=== PATIENT | male | born 1945 | race Caucasian/White ===

== ENCOUNTER → 2018-07-21 11:26 | Outpatient (CLI) | payer OTHER, SELFPAY ==
[2018-07-21 13:08] LABS: BUN Creatinine Ratio 17.3 (6-22); Blood Urea Nitrogen 19 mg/dL (9-20); Estimated Glomerular Filt Rate > 60.0 mL/min (>60)
== END ==
PROVIDERS: Visit Provider Internal Medicine Critical Care Medicine
DX: Z01.812 Encounter for preprocedural laboratory examination (principal)
CPT/HCPCS: 36415; 82565; 84520

== ENCOUNTER → 2018-07-22 10:59 | Outpatient (CLI) | payer OTHER, SELFPAY ==
--- NOTE | 2018-07-22 | DI.CT.S_ITS ---
PROCEDURE: CT CHEST W CON INDICATIONS: CHRONIC OBSTRUCTIVE PULMONARY DISEASE TECHNIQUE: After the administration of intravenous contrast, 5 mm thick sections acquired from the pulmonary apices to the posterior costophrenic angles. 7 mm thick coronal and sagittal MIP reformats were acquired. For radiation dose reduction, the following was used: automated exposure control, adjustment of mA and/or kV according to patient size. COMPARISON: None. FINDINGS: Image quality: Excellent. Lungs and pleura: There is severe centrilobular emphysema with an apical predominance. Paraseptal emphysema is also present at the apices. No pulmonary nodules. No acute air space opacities. No pleural effusion or pneumothorax. Mediastinum: Heart size is normal. No pericardial effusion. No mediastinal or hilar adenopathy by size criteria. Thoracic aorta and central pulmonary arteries are normal in size. Scattered atheromatous calcifications are present within the aortic arch. Esophagus is normal in caliber. No hiatal hernia. Bones and chest wall: No suspicious bony lesions. No vertebral body compression fractures. No axillary or supraclavicular adenopathy by size criteria. Thyroid gland is unremarkable. Abdomen: Visualized upper abdominal solid organs appear normal. Upper abdominal bowel loops are normal in caliber. IMPRESSION: 1. Severe emphysematous change. 2. No acute pulmonary findings. Dictated by: Cathy Espinal M.D. on 07/22/2018 at 11:43 Approved by: Cathy Espinal M.D. on 07/22/2018 at 11:49
== END ==
PROVIDERS: Visit Provider Internal Medicine Critical Care Medicine
DX: J43.2 Centrilobular emphysema (principal)
CPT/HCPCS: 71260; Q9967

== ENCOUNTER 2019-12-31 11:30 | Outpatient (RCR) | payer OTHER, SELFPAY ==
[2019-12-16 09:08] VITALS: BP 120/78; BP 126/78; RESP 12; O2SAT 93; BMI 28.5
--- NOTE | 2019-12-16 10:54 | PR.IEVALNOTE ---
Current Diagnoses Chronic obstructive pulmonary disease, unspecified (12/16/19) Visit Care Team Role Provider Type Bandar Pham MD Primary Care Provider Non-Staff Specialty: Medical Address: [address] [place] [address], [place] [id number], [place], [address] Email: Brian Valadez MD Attending Provider Non-Staff Referring Provider Specialty: Internal Medicine Address: [address] [place] [address], [place], [place], [facility] Email: Pulmonary Rehab Initial Evaluation DE Pulmonary Rehab Inital Assessment Start: 12/16/19 09:06 Freq: Status: Active Protocol: Document 12/16/19 09:08 YOBANY (Rec: 12/16/19 09:48 YOBANY [id number]) DE Exercise Assessment Dx: COPD Comment moderate to severe upper lobe emphysema SHAYY-untreated Primary Language [place] Refractory Repairer Required No Hearing Ability Normal Visual Impairment No Limitations Visual Difficutly None Visual Assist Glasses Body Alignment Posture Good Posture,Relaxed Assistive Devices None Comment patient denies any barriers. Pt states he will be able to exercise independently after completing Pulmonary Rehabilitation Comment Pt does not exercise currently and although physically active has never engaged in purposeful exercise DE Vital Signs Pulse Oximetry (91-100 %) 93 Nasal Cannula No Respiratory Rate (12-24 breaths/min) 12 Respiratory Effort Non-Labored Respiratory Depth Normal Assessment distant breath sounds clear to auscultation Right Arm Blood Pressure (90/60-140/90 mmHg) 126/78 Blood Pressure Method Manual Cuff/Auscultation Left Arm Blood Pressure (90/60-140/90 mmHg) 120/78 Blood Pressure Method Manual Cuff/Auscultation DE Six Minute Walk Test Respiratory Rate (breaths/min) 12 Pulse Rate (beats/min) 99 O2 Saturation by Pulse Oximetry (%) 91 Pulse Rate (beats/min) 108 Ambulation Distance (feet) 250 O2 Saturation by Pulse Oximetry (%) 88 Pulse Rate (beats/min) 105 Ambulation Distance (feet) 200 O2 Saturation by Pulse Oximetry (%) 88 Ambulatory Distance (feet) 200 Pulse Rate (beats/min) 110 Ambulation Distance (feet) 250 O2 Saturation by Pulse Oximetry (%) 89 Pulse Rate (beats/min) 104 Ambulation Distance (feet) 250 O2 Saturation by Pulse Oximetry (%) 88 PUlse Rate (beats/min) 111 Ambulation Distance (feet) 170 O2 Saturation by Pulse Oximetry (%) 88 Respiratory Rate (breaths/min) 18 Pulse Rate (beats/min) 11 O2 Saturation by Pulse Oximetry (%) 88 Activity Tolerance Fair Adverse Reactions Increased Shortness of Breath, Intolerant Dyspnea Distance 1070 Scarlet RPE Scale 12 Oriented to RPE Scale Yes Dyspnea 3 Oriented to Dyspnea Scale Yes DE Exercise Goals Exercise Goals demonstrate appropriate pursed lip breathing technique DASI Number and Comment 8.55 Short Term learn breathing techniques to prevent desaturation, early onset of dyspnea and fatigue Retirement Improve stamina and endurance DE Pulmonary Rehab Orientation Complete Complete Yes DE Nutrition Assessment Forced Expiratory Volume in 1 sec. 41% History of Diabetes No Admit Height 182.88 cm Admit Weight 95.254 kg Admit Body Mass Index (BMI) 28.5 DE Education Pre-Test Score 45% Tobacco Use Former, Quit >6 Months Tobacco Product Used cigarettes Total Years Used 41 Packs Per Day 1 Environmental/Occupational Exposure chlorine gas Use No Concerns None Education Topics Breathing Retraining Discussed Education Requirements on Yes Intake DE Psychosocial Initial Assess HADS Score 2 HADS Score 0 Marital Status Referral Needed No Physician Comment Ready for Pulmonary Rehabilitation Cooperative
== END 2019-12-31 12:30 ==
LOC: PUL 11:30
PROVIDERS: PCP Family Medicine; Referring Provider Internal Medicine Critical Care Medicine; Visit Provider Internal Medicine Critical Care Medicine
DX: J44.9 Chronic obstructive pulmonary disease, unspecified (principal)
CPT/HCPCS: G0424

== ENCOUNTER → 2021-02-17 17:24 | Outpatient (CLI) | payer OTHER, SELFPAY ==
[2019-12-16 09:08] VITALS: BMI 28.5
--- NOTE | 2021-02-17 17:27 | DI.MRI.S_ITS ---
PROCEDURE: MR CERVICAL SPINE WO CON INDICATIONS: RADICULOPATHY CERVICAL REGION TECHNIQUE: Noncontrast sagittal T1 spin echo and T2 fast spin echo, sagittal STIR, foraminal oblique sagittal T2 fast spin echo, and axial gradient echo or T2 fast spin echo through the cervical spine. COMPARISON: None. FINDINGS: Image quality: Excellent. Alignment and Curvature: There is normal bony alignment. Bone Marrow: Marrow demonstrates normal overall signal. Postoperative changes of ACDF spanning from C6-C7. Disc osteophytes are present at C4-5 and C5-6. Spinal Cord: Visualized spinal cord has normal size and signal. No cerebellar tonsillar herniation. Paraspinous Soft Tissues: No paravertebral masses. Prevertebral soft tissues are normal in thickness. C2-C3: No significant disc bulge. The foramina and central canal are patent. C3-C4: No significant disc bulge. The foramina and central canal are patent. C4-C5: Diffuse disc bulge with no protrusion or extrusion and ligamentum flavum hypertrophy posteriorly cause mild central canal stenosis. Facet arthrosis and disc osteophytes cause moderate foraminal stenosis bilaterally. C5-C6: Diffuse disc bulge with no protrusion or extrusion. And ligamentum flavum hypertrophy posteriorly cause moderate central canal stenosis. Facet arthrosis and disc osteophytes cause moderate to severe foraminal stenosis bilaterally. C6-C7: This level is fused by ACDF. The foramina and central canal are patent. C7-T1: No significant disc bulge. The foramina and central canal are patent. IMPRESSION: 1 Cervical spondylosis at C4-5 and C5-6, most pronounced at C5-6 adjacent to the level of fusion. 2. No abnormal cord signal. 3. Mild central canal stenosis at C4-5 and moderate central canal stenosis at C5-6 Dictated by: Griffin Norman M.D. on 02/20/2021 at 8:28 Approved by: Griffin Norman M.D. on 02/20/2021 at 8:35
== END ==
PROVIDERS: PCP Family Medicine; Referring Provider Family Medicine; Visit Provider Family Medicine
DX: M47.22 Other spondylosis with radiculopathy, cervical region (principal); M48.02 Spinal stenosis, cervical region; M79.602 Pain in left arm; Z98.1 Arthrodesis status
CPT/HCPCS: 72141

== ENCOUNTER 2021-08-24 07:34 | Emergency (ER) | payer OTHER, SELFPAY ==
[2019-12-16 09:08] VITALS: BMI 28.5
[2021-08-24] VITALS (7 sets, daily range): BP systolic 126–149; BP diastolic 64–82; PULSE 94–104; RESP 18–28; TEMP 36.9; O2SAT 94–98; BMI 28.5
--- NOTE | 2021-08-24 08:02 | DI.RAD.S_ITS ---
PROCEDURE: XR CHEST 1V INDICATIONS: Shortness of breath TECHNIQUE: One view of the chest was acquired. COMPARISON: [facility], CT, CT CHEST W CON, 07/22/2018, 11:00. [facility], CR, CHEST 2 VIEW, 10/07/2008, 13:15. FINDINGS: Surgical changes and devices: None. Lungs and pleura: Lungs are mildly hyperexpanded and clear. No pleural effusions or pneumothorax. Mediastinum: Mediastinal contours appear normal. Heart size is normal. Bones and chest wall: No suspicious bony lesions. Overlying soft tissues appear unremarkable. IMPRESSION: No acute cardiopulmonary abnormality. COPD. Dictated by: Doug Garcia M.D. on 08/24/2021 at 8:56 Approved by: Doug Garcia M.D. on 08/24/2021 at 9:01
--- NOTE | 2021-08-24 08:09 | ED_ITS ---
HPI - General Adult General Chief complaint: Shortness of Breath/Dyspnea Stated complaint: SOB Time Seen by Provider: 08/24/21 08:00 Source: patient Mode of arrival: Ambulatory Limitations: no limitations History of Present Illness HPI narrative: Patient is a 75-year-old male. Does have a history of COPD. Is not on home oxygen. Does have home inhalers. Over the past several months he has had episodes where he has problems breathing. Within the past 3 months he was given a course of antibiotics. He states that the mucus production during that time improved but then once the antibiotics were done the symptoms seem to return. Over the past couple days he has had more dyspnea on exertion. Last evening could not lie flat because he was short of breath. This morning he felt somewhat better however just walking around the house he became more short of breath. No chest pain. No abdominal pain. No nausea vomiting. No fevers. He does have lower extremity swelling but this is not necessarily new. He does have a productive cough but has not changed much over the past several weeks. No recent travel. Related Data Home Medications Medication Instructions Recorded Confirmed beclomethasone dipropionate [Qvar] INHALATION 03/19/19 03/19/19 tiotropium bromide [Spiriva INHALATION 03/19/19 03/19/19 Respimat] Previous Rx's Medication Instructions Recorded azithromycin 250 mg tablet See Rx Instructions PO .COMPLEX #6 03/19/19 tab prednisone 20 mg tablet 40 mg PO DAILY 5 Days #10 tab 08/24/21 Allergies Allergy/AdvReac Type Severity Reaction Status Date / Time No Known Drug Allergies Allergy Verified 03/19/19 08:21 Review of Systems Constitutional Constitutional: Reports system reviewed and no additional complaints, except as documented Eyes Eyes: Reports system reviewed and no additional complaints, except as documented ENT Ears, Nose, Mouth, and Throat: Reports system reviewed and no additional complaints, except as documented Cardiovascular Cardiovascular: Reports system reviewed and no additional complaints, except as documented Respiratory Respiratory: Reports as per HPI and Reports system reviewed and no additional complaints, except as documented Gastrointestinal Gastrointestinal: Reports system reviewed and no additional complaints, except as documented Genitourinary Genitourinary: Reports system reviewed and no additional complaints, except as documented Musculoskeletal Musculoskeletal: Reports system reviewed and no additional complaints, except as documented Integumentary/Breasts Skin/Breast: Reports system reviewed and no additional complaints, except as documented Neurologic Neurologic: Reports system reviewed and no additional complaints, except as documented Endocrine Endocrine: Reports system reviewed and no additional complaints, except as documented Hematologic/Lymphatic On Anticoagulants: No Allergic/Immunologic Allergic/Immunologic: Reports system reviewed and no additional complaints, except as documented Patient History Medical History Chronic obstructive pulmonary disease Social History Smoking Status: Former smoker Tobacco: How many years used: 41 Smoking Status: Former smoker (Quit 1999) Exam Initial Vital Signs Initial Vital Signs: Vital Signs Pulse Rate 95 H 08/24/21 08:10 Respiratory Rate 20 08/24/21 08:10 Pulse Oximetry 95 08/24/21 08:10 Const General: cooperative, comfortable, well developed and well groomed Limitations: mental status not altered HENMT Head: normal to inspection and normocephalic Eyes General: appearance normal, both eyes and all related structures Chest Chest: normal inspection of the chest Resp Effort & Inspection: not labored and tachypneic Auscultation: diminished lung sounds Cardio Rate: regular rate Rhythm: regular rhythm GI Inspection: normal to inspection Back/Spine/Pelvis Back: normal to inspection Skin General: no rashes or lesions noted Neuro General: patient alert, patient awake, patient oriented x3 and moves all extremities Extrem General: normal to inspection and edema Psych Appearance: grossly normal and well kempt Course Orders Ordered: ED Orders 08/24/21 08:02 XR chest 1V Stat EKG-12 Lead Stat 08/24/21 08:20 COVID19 -Nasal swab/Pre-Proc Stat Complete Blood Count AUTO DIFF Stat Comprehensive Metabolic Panel Stat Lipase Stat NT-proBNP (BNP-Adult 18+) Stat Procalcitonin Stat Troponin & CK Cardiac Panel Stat Discontinued Medications Albuterol/Ipratropium (Albuterol/Ipratropium 3 Ml Ampul) 3 ml INH Q20M [facility] Stop: 08/24/21 08:41 Last Admin: 08/24/21 09:45 Dose: 3 ml Documented by: Admin: 08/24/21 08:53 Dose: 3 ml Documented by: Admin: 08/24/21 08:10 Dose: 3 ml Documented by: FREDY Methylprednisolone (Methylprednisolone 125 Mg/2 Ml Vial) 125 mg IV NOW ONE Stop: 08/24/21 08:01 Last Admin: 08/24/21 08:53 Dose: 125 mg Documented by: MELONIE Vital Signs Vital signs: Vital Signs - 8 hr 08/24/21 08:10 08/24/21 08:15 08/24/21 08:55 Temperature 98.4 F Pulse Rate 95 H 102 H 94 H Respiratory Rate 20 28 H 22 Blood Pressure 149/82 H Pulse Oximetry 95 94 08/24/21 09:02 08/24/21 09:45 08/24/21 10:33 Temperature Pulse Rate 97 H 101 H 104 H Respiratory Rate 20 20 18 Blood Pressure 131/73 134/69 Pulse Oximetry 94 96 94 Medical Decision Making Lab Data Lab results reviewed: Yes I reviewed the patient's lab results. Result diagrams: 08/24/21 08:20 08/24/21 08:20 Labs: Lab Results 08/24/21 08/24/21 08/24/21 Range/Units 08:20 08:20 08:20 WBC 6.2 (4.5-11.0) X10^3/uL RBC 4.90 (4.5-5.9) X10^6/uL Hgb 15.0 (13.5-17.5) g/dL Hct 44.5 (41-53) % MCV 91.0 (80-100) fL MCH 30.7 (26-34) PG MCHC 33.8 (30-36) % RDW 13.7 (11.6-14.8) % Plt Count 268 (150-400) X10^3/uL Neut % (Auto) 77.1 H (50-75) % Lymph % (Auto) 12.3 L (25-40) % [place] % (Auto) 6.5 (3-14) % Eos % (Auto) 3.3 (2-4) % Baso % (Auto) 0.8 (0-2) % Neut # (Auto) 4800 (1186-4867) /uL Lymph # (Auto) 800 L (3524-2552) /uL [place] # (Auto) 400 (0-900) /uL Eos # (Auto) 200 (0-450) /uL Baso # (Auto) 0 (0-100) /uL Sodium (137-145) mmol/L Potassium (3.4-5.1) mmol/L Chloride (98-107) mmol/L Carbon Dioxide (22-32) mmol/L BUN (9-20) mg/dL Creatinine (0.66-1.25) mg/dL Estimated GFR (>60) mL/min BUN/Creatinine Ratio (6-22) Glucose (80-110) mg/dL Calcium (8.4-10.2) mg/dL Total Bilirubin (0.2-1.3) mg/dL AST (17-59) IU/L ALT (<50) IU/L Alkaline Phosphatase (38-126) U/L Total Creatine Kinase 99 (55-170) U/L CK-MB (CK-2) TNP CK-MB (CK-2) Rel Index TNP Troponin I < 0.012 (0.01-0.034) ng/mL NT-Pro-B Natriuret Pep 21 (<450) pg/mL Total Protein (6.3-8.2) g/dL Albumin (3.5-5.0) g/dL Globulin (1.7-4.1) g/dL Albumin/Globulin Ratio (1.0-2.8) Lipase 124 (23-300) U/L Procalcitonin 0.04 (<0.5) ng/mL SARS-CoV-2 (PCR) Negative (Negative) 08/24/21 Range/Units 08:20 WBC (4.5-11.0) X10^3/uL RBC (4.5-5.9) X10^6/uL Hgb (13.5-17.5) g/dL Hct (41-53) % MCV (80-100) fL MCH (26-34) PG MCHC (30-36) % RDW (11.6-14.8) % Plt Count (150-400) X10^3/uL Neut % (Auto) (50-75) % Lymph % (Auto) (25-40) % [place] % (Auto) (3-14) % Eos % (Auto) (2-4) % Baso % (Auto) (0-2) % Neut # (Auto) (2596-5064) /uL Lymph # (Auto) (7130-5600) /uL [place] # (Auto) (0-900) /uL Eos # (Auto) (0-450) /uL Baso # (Auto) (0-100) /uL Sodium 140 (137-145) mmol/L Potassium 4.3 (3.4-5.1) mmol/L Chloride 104 (98-107) mmol/L Carbon Dioxide 24 (22-32) mmol/L BUN 22 H (9-20) mg/dL Creatinine 1.01 (0.66-1.25) mg/dL Estimated GFR > 60.0 (>60) mL/min BUN/Creatinine Ratio 21.8 (6-22) Glucose 135 H (80-110) mg/dL Calcium 9.5 (8.4-10.2) mg/dL Total Bilirubin 0.5 (0.2-1.3) mg/dL AST 28 (17-59) IU/L ALT 27 (<50) IU/L Alkaline Phosphatase 76 (38-126) U/L Total Creatine Kinase (55-170) U/L CK-MB (CK-2) CK-MB (CK-2) Rel Index Troponin I (0.01-0.034) ng/mL NT-Pro-B Natriuret Pep (<450) pg/mL Total Protein 7.3 (6.3-8.2) g/dL Albumin 4.9 (3.5-5.0) g/dL Globulin 2.4 (1.7-4.1) g/dL Albumin/Globulin Ratio 2.0 (1.0-2.8) Lipase (23-300) U/L Procalcitonin (<0.5) ng/mL SARS-CoV-2 (PCR) (Negative) Imaging Data Chest x-ray: Radiologist's Impression: [address] [address] XRay Report Signed Patient: Brian Tuttle MR#: [id number] : 1945 Acct:[id number] Age/Sex: 75 / M Date of Service: 08/24/21 Loc: ED Accession Number: [id number] ?? Procedure: XR chest 1V Ordering Provider: Leon Maravilla D.O. PROCEDURE:? XR CHEST 1V ? INDICATIONS:? Shortness of breath ? TECHNIQUE:? One view of the chest was acquired.? ? COMPARISON:? [facility], CT, CT CHEST W CON, 07/22/2018, 11:00.? [facility], CR, CHEST 2 VIEW, 10/07/2008, 13:15. ? FINDINGS:? ? Surgical changes and devices:? None.? ? Lungs and pleura:? Lungs are mildly hyperexpanded and clear.? No pleural effusions or pneumothorax.? ? Mediastinum:? Mediastinal contours appear normal.? Heart size is normal.? ? Bones and chest wall:? No suspicious bony lesions.? Overlying soft tissues appear unremarkable.? ? IMPRESSION:? No acute cardiopulmonary abnormality.? COPD.? ? ? Dictated by: Doug Garcia M.D. on 08/24/2021 at 8:56 ? ? Approved by: Doug Garcia M.D. on 08/24/2021 at 9:01?? ECG Data Attestation: I personally reviewed and interpreted this ECG as follows: Interpretation: Sinus rhythm Ventricular rate 91 Normal axis Normal QRS Normal QTC No ST T wave changes MDM Narrative Medical decision making narrative: Patient does report improvements in his symptoms after treatments here in the emergency department. He was recently on antibiotics. His chest x-ray is unremarkable. I feel that we should hold on antibiotics for now. Will start him on a course of steroids. He does have inhalers at home. He was given a spacer. He has a follow-up with his primary doctor on Saturday of next week. Was given return precautions and follow-up instructions. He expressed understanding and agreement. Discharge Plan Departure Patient Disposition: Home Clinical Impression: COPD exacerbation Instructions: DI for Chronic Obstructive Pulmonary Disease Activity Restrictions/Additional Instructions: We do need to start you on a course of steroids. It was electronically transmitted to [email or web address]. Your 1st dose of this will be tomorrow. We will hold on antibiotics for now. I do recommend that every 4 hours for the next 24 hours while your awake that you use the albuterol inhaler. Return to the emergency department for any new or worsening symptoms Prescriptions: New prednisone 20 mg tablet 40 mg PO DAILY 5 Days Qty: 10 RF: 0 No Action beclomethasone dipropionate INHALATION RF: 0 tiotropium bromide INHALATION RF: 0 azithromycin 250 mg tablet See Rx Instructions PO .COMPLEX Qty: 6 RF: 0 Referrals: Bandar Pham MD [Primary Care Provider] -
[2021-08-24] MEDS: ALBUTEROL/IPRATROPIUM 3 ML AMPUL INH ×3 (08:10→09:45)
[2021-08-24 08:35] LABS: Add Manual Diff / Slide Review NO; Basophils Absolute Auto 0 /uL (0-100); Basophils Percent Auto 0.8 % (0-2); Eosinophils Absolute Auto 200 /uL (0-450); Eosinophils Percent Auto 3.3 % (2-4); Hematocrit 44.5 % (41-53); Lymphocytes Absolute Auto 800 /uL (1100-4500); Lymphocytes Percent Auto 12.3 % (25-40); Mean Corpuscular HGB Conc 33.8 % (30-36); Mean Corpuscular Hemoglobin 30.7 PG (26-34); Monocytes Absolute Auto 400 /uL (0-900); Monocytes Percent Auto 6.5 % (3-14); Neutrophils Absolute Auto 4800 /uL (1500-7000); Neutrophils Percent Auto 77.1 % (50-75); Platelet Count 268 X10^3/uL (150-400); Red Cell Distribution Width 13.7 % (11.6-14.8); White Blood Cell Count 6.2 X10^3/uL (4.5-11.0)
[2021-08-24 08:46] LABS: Creatine Kinase 99 U/L (55-170); Lipase 124 U/L (23-300)
[2021-08-24] MEDS: methylPREDNISolone 125 MG/2 ML VIAL IV (08:53)
--- NOTE | 2021-08-24 08:56 | RT ---
pt charlene neb tx well, no distress noted but mild mod sob with coughing or movement. at bedside, pt on room ai
[2021-08-24 08:58] LABS: NT-proBNP (BNP-Adult 18+) 21 pg/mL (<450); Troponin I < 0.012 ng/mL (0.01-0.034)
[2021-08-24 09:03] LABS: Procalcitonin 0.04 ng/mL (<0.5)
--- NOTE | 2021-08-24 09:03 | RT ---
pt on room air, charlene tx well. at bedside
[2021-08-24 09:08] LABS: COVID19 -Nasal RAPID Negative (Negative)
--- NOTE | 2021-08-24 09:51 | RT ---
pt on room air, no distress noted
[2021-08-24 09:56] LABS: Alanine Aminotransferase 27 IU/L (<50); Albumin 4.9 g/dL (3.5-5.0); Alkaline Phosphatase 76 U/L (38-126); Aspartate Aminotransferase 28 IU/L (17-59); BUN Creatinine Ratio 21.8 (6-22); Bilirubin Total 0.5 mg/dL (0.2-1.3); Blood Urea Nitrogen 22 mg/dL (9-20); Calcium 9.5 mg/dL (8.4-10.2); Carbon Dioxide 24 mmol/L (22-32); Chloride 104 mmol/L (98-107); Estimated Glomerular Filt Rate > 60.0 mL/min (>60); Globulin 2.4 g/dL (1.7-4.1); Glucose 135 mg/dL (80-110); HEMOLYSIS < 15 (0-50); Potassium 4.3 mmol/L (3.4-5.1); Sodium 140 mmol/L (137-145); Total Protein 7.3 g/dL (6.3-8.2)
== END 2021-08-24 11:29 | disposition home or self-care (01) ==
PROVIDERS: Emergency Provider Emergency Medicine; PCP Family Medicine
DX: J44.1 Chronic obstructive pulmonary disease with (acute) exacerbation (principal); R07.9 Chest pain, unspecified; Z20.822 Contact with and (suspected) exposure to COVID-19
CPT/HCPCS: 36415; 71045; 80053; 82550; 83690; 83880; 84145; 84484; 85025; 87635; 93005; 93010; 94640; 96374; 99284; C9803; J2930

== ENCOUNTER 2021-08-25 09:19 | Emergency (ER) | payer OTHER, SELFPAY ==
[2019-12-16 09:08] VITALS: BMI 28.5
[2021-08-25] VITALS (11 sets, daily range): BP systolic 126–156; BP diastolic 62–94; PULSE 102–128; RESP 20–28; TEMP 36.4; O2SAT 92–99; BMI 28.5
[2021-08-25] MEDS: ALBUTEROL/IPRATROPIUM 3 ML AMPUL INH ×3 (09:25→10:56)
--- NOTE | 2021-08-25 09:40 | ED_ITS ---
HPI - General Adult General Chief complaint: Shortness of Breath/Dyspnea Stated complaint: Difficulty breathing/Pain lower chest/shaking Time Seen by Provider: 08/25/21 09:31 Source: patient Mode of arrival: Family Vehicle Limitations: no limitations History of Present Illness HPI narrative: Patient is a 75-year-old male. History of COPD. I evaluated him here in the emergency department yesterday for COPD exacerbation. He received nebulizer and also steroids. He improve afterwards. Was sent home with a pres cription for steroids. He was told to start the steroids today. He has not taken them yet today. He did use his inhaler last evening but did have to take it sooner than what was directed. Is also having coughing. He continues to have the epigastric abdominal discomfort that he has had for some time which did describes yesterday. No fevers. He was not sent home with antibiotics yesterday. Related Data Home Medications Medication Instructions Recorded Confirmed beclomethasone dipropionate [Qvar] INHALATION 03/19/19 03/19/19 tiotropium bromide [Spiriva INHALATION 03/19/19 03/19/19 Respimat] Previous Rx's Medication Instructions Recorded azithromycin 250 mg tablet See Rx Instructions PO .COMPLEX #6 03/19/19 tab prednisone 20 mg tablet 40 mg PO DAILY 5 Days #10 tab 08/24/21 albuterol sulfate 2.5 mg/0.5 mL 2.5 mg INHALATION Q20M PRN #30 ea 08/25/21 solution for nebulization albuterol sulfate 90 mcg/actuation 2 puff INHALATION Q4-6H PRN #8.5 g 08/25/21 aerosol inhaler doxycycline hyclate 100 mg tablet 100 mg PO DAILY 7 Days #14 tab 08/25/21 lorazepam 0.5 mg tablet (Ativan) 0.5 mg PO BID PRN #7 tab 08/25/21 Allergies Allergy/AdvReac Type Severity Reaction Status Date / Time No Known Drug Allergies Allergy Verified 03/19/19 08:21 Review of Systems Constitutional Constitutional: Denies fever(s) ENT Ears, Nose, Mouth, and Throat: Reports system reviewed and no additional complaints, except as documented Cardiovascular Cardiovascular: Reports system reviewed and no additional complaints, except as documented Respiratory Respiratory: Reports system reviewed and no additional complaints, except as documented Gastrointestinal Gastrointestinal: Reports system reviewed and no additional complaints, except as documented Musculoskeletal Musculoskeletal: Reports system reviewed and no additional complaints, except as documented Integumentary/Breasts Skin/Breast: Reports system reviewed and no additional complaints, except as documented Neurologic Neurologic: Reports system reviewed and no additional complaints, except as documented Hematologic/Lymphatic On Anticoagulants: No Allergic/Immunologic Allergic/Immunologic: Reports system reviewed and no additional complaints, except as documented Patient History Medical History Chronic obstructive pulmonary disease Social History Smoking Status: Former smoker Tobacco: How many years used: 41 Smoking Status: Former smoker alcohol intake frequency: holidays/special occasions only Substance Use Type: does not use Exam Initial Vital Signs Initial Vital Signs: Vital Signs Pulse Rate 102 H 08/25/21 09:25 Respiratory Rate 28 H 08/25/21 09:25 Pulse Oximetry 93 08/25/21 09:25 Const General: healthy appearing and well developed Limitations: mental status not altered HENMT Head: normal to inspection and normocephalic Neck Neck: normal visual inspection Resp Effort & Inspection: labored and tachypneic Auscultation: diminished lung sounds Cardio Rate: tachycardic Rhythm: regular rhythm GI Inspection: normal to inspection Skin General: no rashes or lesions noted Neuro General: patient alert, patient awake and patient oriented x3 Extrem General: No edema Psych Appearance: grossly normal and well kempt Course Orders Ordered: ED Orders 08/25/21 09:30 Procalcitonin Stat 08/25/21 09:41 XR chest 1V Stat 08/25/21 09:42 EKG-12 Lead Stat Discontinued Medications Albuterol (Albuterol 2.5 Mg/3 Ml Neb (Adult)) 20 mg INH NOW ONE Stop: 08/25/21 12:29 Last Admin: 08/25/21 13:31 Dose: 20 mg Documented by: FREDY Albuterol/Ipratropium (Albuterol/Ipratropium 3 Ml Ampul) 3 ml INH Q20M SKYLAR Stop: 08/25/21 10:26 Last Admin: 08/25/21 10:56 Dose: 3 ml Documented by: Admin: 08/25/21 09:58 Dose: 3 ml Documented by: Admin: 08/25/21 09:25 Dose: 3 ml Documented by: FREDY Lorazepam (Lorazepam 0.5 Mg Tablet) 1 mg PO NOW ONE Stop: 08/25/21 13:40 Last Admin: 08/25/21 13:52 Dose: 1 mg Documented by: MAHENDRA Methylprednisolone (Methylprednisolone 125 Mg/2 Ml Vial) 125 mg IV NOW ONE Stop: 08/25/21 10:02 Last Admin: 08/25/21 10:13 Dose: 125 mg Documented by: MELONIE Vital Signs Vital signs: Vital Signs - 8 hr 08/25/21 10:46 08/25/21 10:55 08/25/21 13:30 Pulse Rate 103 H 104 H 111 H Respiratory Rate 22 22 24 Blood Pressure 138/66 154/72 H Pulse Oximetry 93 95 92 08/25/21 14:00 08/25/21 14:30 08/25/21 15:00 Pulse Rate 113 H 120 H 128 H Respiratory Rate Blood Pressure 144/69 H 128/84 126/62 Pulse Oximetry 98 99 95 08/25/21 15:30 08/25/21 16:18 Pulse Rate 125 H 123 H Respiratory Rate 20 Blood Pressure 138/65 136/94 H Pulse Oximetry 94 95 Medical Decision Making Medical Records Medical records reviewed: Yes I reviewed the patient's medical records. Lab Data Lab results reviewed: Yes I reviewed the patient's lab results. Result diagrams: 08/25/21 09:10 08/25/21 09:10 Labs: Lab Results 08/25/21 08/25/21 08/25/21 Range/Units 09:10 09:10 09:30 WBC 14.4 H D (4.5-11.0) X10^3/uL RBC 5.14 (4.5-5.9) X10^6/uL Hgb 15.5 (13.5-17.5) g/dL Hct 46.4 (41-53) % MCV 90.3 (80-100) fL MCH 30.3 (26-34) PG MCHC 33.5 (30-36) % RDW 13.9 (11.6-14.8) % Plt Count 329 (150-400) X10^3/uL Neut % (Auto) 86.2 H (50-75) % Lymph % (Auto) 6.5 L (25-40) % Bradley % (Auto) 6.8 (3-14) % Eos % (Auto) 0.2 L (2-4) % Baso % (Auto) 0.3 (0-2) % Neut # (Auto) 91540 H (1953-7423) /uL Lymph # (Auto) 900 L (8971-4774) /uL Bradley # (Auto) 1000 H (0-900) /uL Eos # (Auto) 0 (0-450) /uL Baso # (Auto) 0 (0-100) /uL Sodium 140 (137-145) mmol/L Potassium 4.2 (3.4-5.1) mmol/L Chloride 101 (98-107) mmol/L Carbon Dioxide 30 (22-32) mmol/L BUN 17 (9-20) mg/dL Creatinine 0.95 (0.66-1.25) mg/dL Estimated GFR > 60.0 (>60) mL/min BUN/Creatinine Ratio 17.9 (6-22) Glucose 128 H (80-110) mg/dL Calcium 10.3 H (8.4-10.2) mg/dL Total Bilirubin 0.6 (0.2-1.3) mg/dL AST 42 (17-59) IU/L ALT 30 (<50) IU/L Alkaline Phosphatase 79 (38-126) U/L Total Creatine Kinase 193 H (55-170) U/L CK-MB (CK-2) 3.92 H (<2.37) ng/mL CK-MB (CK-2) Rel Index 2.0 (1.5-5.0) % Troponin I < 0.012 (0.01-0.034) ng/mL NT-Pro-B Natriuret Pep 72 (<450) pg/mL Total Protein 8.2 (6.3-8.2) g/dL Albumin 5.0 (3.5-5.0) g/dL Globulin 3.2 (1.7-4.1) g/dL Albumin/Globulin Ratio 1.6 (1.0-2.8) Procalcitonin 0.04 (<0.5) ng/mL Imaging Data Chest x-ray: Radiologist's Impression: [address] [address] XRay Report Signed Patient: Brian Tuttle MR#: [id number] : 1945 Acct:[id number] Age/Sex: 75 / M Date of Service: 08/25/21 Loc: ED Accession Number: [id number] ?? Procedure: XR chest 1V Ordering Provider: Leon Maravilla D.O. PROCEDURE:? XR CHEST 1V ? INDICATIONS:? sob ? TECHNIQUE:? One view of the chest was acquired.? ? COMPARISON:? [facility], CR, XR CHEST 1V, 08/24/2021, 8:08. ? FINDINGS:? ? Surgical changes and devices:? Fusion hardware in lower cervical spine is seen. ? Lungs and pleura:? Lungs are clear.? No pleural effusions or pneumothorax.? ? Mediastinum:? Mediastinal contours appear normal.? Heart size is normal.? ? Bones and chest wall:? No suspicious bony lesions.? Overlying soft tissues appear unremarkable.? ? IMPRESSION:? No acute cardiopulmonary pathology. ? ? Dictated by: Dale Payne M.D. on 08/25/2021 at 10:46 ? ? Approved by: Dale Payne M.D. on 08/25/2021 at 10:46? ECG Data Attestation: I personally reviewed and interpreted this ECG as follows: Interpretation: Sinus tachycardia Ventricular rate 102 Normal axis Normal QRS Normal QTC Nonspecific ST T wave changes MDM Narrative Medical decision making narrative: Patient returns today very similar to yesterday. He received multiple nebulizer treatments and more steroids. He did improve with this. He does have a leukocytosis today however this could potentially be related to the steroids and also a stress reaction however he has had a productive cough for the past couple days no fevers. Given his 2nd day presentation for COPD I will start him on antibiotics. He stated that dox ycycline has worked well for him in the past. We were able to get the patient a home nebulizer. Refilled his albuterol. Was also given medications for the nebulizer. Patient now feels well enough to go home. He was given return precautions. He expressed understanding and agreement. Discharge Plan Departure Patient Disposition: Home Clinical Impression: COPD exacerbation Instructions: DI for Chronic Obstructive Pulmonary Disease Activity Restrictions/Additional Instructions: I do recommend that you start the steroids that you were given as a prescription during your visit yesterday tomorrow. Prescriptions for albuterol and antibiotics and Ativan were transmitted to [facility]. Contact your primary doctor for a follow-up. Return to the emergency department for any new or worsening symptoms Prescriptions: New albuterol sulfate 2.5 mg/0.5 mL solution for nebulization 2.5 mg inhalation Q20M PRN (Reason: shortness of breath or wheezing) Qty: 30 RF: 0 albuterol sulfate 90 mcg/actuation HFA aerosol inhaler 2 puff inhalation Q4-6H PRN (Reason: shortness of breath or wheezing) Qty: 8. 5 RF: 0 doxycycline hyclate 100 mg tablet 100 mg PO DAILY 7 Days Qty: 14 RF: 0 lorazepam [Ativan] 0.5 mg tablet 0.5 mg PO BID PRN (Reason: anxiety) Qty: 7 RF: 0 No Action beclomethasone dipropionate INHALATION RF: 0 tiotropium bromide INHALATION RF: 0 azithromycin 250 mg tablet See Rx Instructions PO .COMPLEX Qty: 6 RF: 0 prednisone 20 mg tablet 40 mg PO DAILY 5 Days Qty: 10 RF: 0 Referrals: Bandar Pham MD [Primary Care Provider] -
--- NOTE | 2021-08-25 09:41 | DI.RAD.S_ITS ---
PROCEDURE: XR CHEST 1V INDICATIONS: sob TECHNIQUE: One view of the chest was acquired. COMPARISON: [facility], CR, XR CHEST 1V, 08/24/2021, 8:08. FINDINGS: Surgical changes and devices: Fusion hardware in lower cervical spine is seen. Lungs and pleura: Lungs are clear. No pleural effusions or pneumothorax. Mediastinum: Mediastinal contours appear normal. Heart size is normal. Bones and chest wall: No suspicious bony lesions. Overlying soft tissues appear unremarkable. IMPRESSION: No acute cardiopulmonary pathology. Dictated by: Dale Payne M.D. on 08/25/2021 at 10:46 Approved by: Dale Payne M.D. on 08/25/2021 at 10:46
[2021-08-25 09:51] LABS: Add Manual Diff / Slide Review NO; Basophils Absolute Auto 0 /uL (0-100); Basophils Percent Auto 0.3 % (0-2); Eosinophils Absolute Auto 0 /uL (0-450); Eosinophils Percent Auto 0.2 % (2-4); Hematocrit 46.4 % (41-53); Hemoglobin 15.5 g/dL (13.5-17.5); Lymphocytes Absolute Auto 900 /uL (1100-4500); Lymphocytes Percent Auto 6.5 % (25-40); Mean Corpuscular HGB Conc 33.5 % (30-36); Mean Corpuscular Hemoglobin 30.3 PG (26-34); Mean Corpuscular Volume 90.3 fL (80-100); Monocytes Absolute Auto 1000 /uL (0-900); Monocytes Percent Auto 6.8 % (3-14); Neutrophils Absolute Auto 12400 /uL (1500-7000); Neutrophils Percent Auto 86.2 % (50-75); Platelet Count 329 X10^3/uL (150-400); Red Blood Cell Count 5.14 X10^6/uL (4.5-5.9); Red Cell Distribution Width 13.9 % (11.6-14.8); White Blood Cell Count 14.4 X10^3/uL (4.5-11.0)
--- NOTE | 2021-08-25 09:52 | RT ---
Called to bedside for Resp Distress pt, pt diminished and med enb given and charlene well. pt states improved air movement.
[2021-08-25 09:58] LABS: Alanine Aminotransferase 30 IU/L (<50); Albumin Globulin Ratio 1.6 (1.0-2.8); Alkaline Phosphatase 79 U/L (38-126); Aspartate Aminotransferase 42 IU/L (17-59); BUN Creatinine Ratio 17.9 (6-22); Bilirubin Total 0.6 mg/dL (0.2-1.3); Blood Urea Nitrogen 17 mg/dL (9-20); Calcium 10.3 mg/dL (8.4-10.2); Carbon Dioxide 30 mmol/L (22-32); Chloride 101 mmol/L (98-107); Creatine Kinase 193 U/L (55-170); Estimated Glomerular Filt Rate > 60.0 mL/min (>60); Globulin 3.2 g/dL (1.7-4.1); Glucose 128 mg/dL (80-110); Potassium 4.2 mmol/L (3.4-5.1); Sodium 140 mmol/L (137-145); Total Protein 8.2 g/dL (6.3-8.2)
--- NOTE | 2021-08-25 10:07 | RT ---
Pt charlene neb tx well, sob with movement.
[2021-08-25 10:10] LABS: NT-proBNP (BNP-Adult 18+) 72 pg/mL (<450); Troponin I < 0.012 ng/mL (0.01-0.034)
[2021-08-25] MEDS: methylPREDNISolone 125 MG/2 ML VIAL IV (10:13)
[2021-08-25 10:17] LABS: Creatine Kinase MB 3.92 ng/mL (<2.37); HEMOLYSIS 49 (0-50)
[2021-08-25 10:44] LABS: Procalcitonin 0.04 ng/mL (<0.5)
[2021-08-25] MEDS: ALBUTEROL 2.5 MG/3 ML NEB (ADULT) 20 MG INH (13:31)
[2021-08-25] MEDS: LORazepam 0.5 MG TABLET 1 MG PO (13:52)
--- NOTE | 2021-08-25 14:48 | RT ---
continous Neb ALB 20mg given over 1 hour without incident, no distressed noticed, pt. tolaterated will on rm air
== END 2021-08-25 16:19 | disposition home or self-care (01) ==
PROVIDERS: Emergency Provider Emergency Medicine; PCP Family Medicine
DX: J44.1 Chronic obstructive pulmonary disease with (acute) exacerbation (principal); R10.13 Epigastric pain; R00.0 Tachycardia, unspecified
CPT/HCPCS: 36415; 71045; 80053; 82550; 82553; 83880; 84145; 84484; 85025; 93005; 93010; 94640; 96374; 99284; J2930; J7613

== ENCOUNTER 2021-09-26 07:50 | Emergency (ER) | payer OTHER, SELFPAY ==
[2019-12-16 09:08] VITALS: BMI 28.5
[2021-09-26 08:00] VITALS: BP 164/76; PULSE 118; RESP 22; TEMP 36.4; O2SAT 93; BMI 28.5
--- NOTE | 2021-09-26 08:09 | ED.SOB ---
HPI - SOB/Dyspnea General Chief Complaint: Shortness of Breath/Dyspnea Stated Complaint: SOB Time Seen by Provider: 09/26/21 08:08 Source: patient Mode of arrival: Ambulatory Limitations: no limitations History of Present Illness HPI Narrative: This is a 75-year-old male with known COPD who was seen here on August 24 and 2020 for similar symptoms. Patient states he was placed on steroids which was helpful. He received a 2nd prescription from his primary care physician and was continuing to do well. As he has weaned down the last 3 days at 10 mg and then the last 2 days with no prednisone on board he has noted significant worsening of his shortness of breath. He also notes that he quit taking furosemide after 7 day course several days ago as well. He states that he had a lot of swelling in his lower extremities which had improved 1 day after he completed the furosemide but has since returned. Patient states he short of breath particularly when he attempts to ambulate around the house. He does have longstanding orthopnea but states it seems worse. He finds that he has not had any objective fevers but occasionally has fevers or chills. He has had nasal congestion persistent for several months. He denies any chest pain or pressure except after having albuterol last night he had 2 doses in quick succession and states his heart rate felt very fast and for about 20 minutes he felt very short of breath. This resolved but he has only been using his inhaler since then. He has not had a. Patient states he has had increasing swelling in his lower extremities. He has not had any nausea or vomiting. He had 1 day of diarrhea but has not had any persistently. He is scheduled for a lung function test later today. His home medications include his daily steroid inhaler, rosuvastatin and albuterol either inhaler or nebulized. He is not persistently on furosemide. He did receive antibiotics on his 2nd visit on August 25. Related Data Home Medications Medication Instructions Recorded Confirmed beclomethasone dipropionate [Qvar] INHALATION 03/19/19 03/19/19 tiotropium bromide [Spiriva INHALATION 03/19/19 03/19/19 Respimat] Previous Rx's Medication Instructions Recorded azithromycin 250 mg tablet See Rx Instructions PO .COMPLEX #6 03/19/19 tab albuterol sulfate 2.5 mg/0.5 mL 2.5 mg (0.5 mL) INHALATION Q20M 08/25/21 solution for nebulization PRN #30 ea albuterol sulfate 90 mcg/actuation 2 puff INHALATION Q4-6H PRN #8.5 g 08/25/21 aerosol inhaler lorazepam 0.5 mg tablet (Ativan) 0.5 mg PO BID PRN #7 tab 08/25/21 furosemide 20 mg tablet (Lasix) 20 mg PO DAILY #7 tab 09/26/21 prednisone 10 mg tablet 30 mg PO DAILY #33 tab 09/26/21 Allergies Allergy/AdvReac Type Severity Reaction Status Date / Time No Known Drug Allergies Allergy Verified 03/19/19 08:21 Review of Systems Review of Systems ROS Unobtainable: All systems reviewed & are unremarkable except as noted in HPI and below Patient History Medical History Chronic obstructive pulmonary disease Social History Smoking Status: Former smoker Tobacco: How many years used: 41 Smoking Status: Former smoker alcohol intake frequency: holidays/special occasions only Substance Use Type: does not use Exam Narrative Exam Narrative: GENERAL: Alert and oriented x three, elderly male in mild distress. HEENT: Head normocephalic, atraumatic, EOMI, pupils reactive, face symmetric, nares are clear, moist mucous membranes NECK: Supple, full range of motion CARDIOVASCULAR: Slightly tachycardic, regular rate and rhythm without murmurs, rubs or gallops. No JVD. Bilateral lower extremity 2+ edema. RESPIRATORY: Breath sounds mildly decreasedbilaterally, no wheezes or rales or rhonchi. No tachypnea. No accessory muscle use. Speaks in full sentences. ABDOMEN: Soft, nontender. Normoactive bowel sounds all 4 quadrants. No guarding or rebound, rigidity, no mass : No CVA tenderness EXTREMITIES: Normal range of motion. Neurovascularly intact. NEUROLOGICAL: Cranial nerves II through XII grossly intact. Moving all extremities SKIN: Warm, dry, no petechiae, no rashes or lesions. Initial Vital Signs Initial Vital Signs: Vital Signs Temperature 97.5 F L 09/26/21 08:00 Pulse Rate 118 H 09/26/21 08:00 Respiratory Rate 22 09/26/21 08:00 Blood Pressure 164/76 H 09/26/21 08:00 Pulse Oximetry 93 09/26/21 08:00 Course Orders Ordered: Discontinued Medications Furosemide (Furosemide 40 Mg/4 Ml Vial) 40 mg IV NOW ONE Stop: 09/26/21 08:27 Last Admin: 09/26/21 08:44 Dose: 40 mg Documented by: MÓNICA Methylprednisolone (Methylprednisolone 125 Mg/2 Ml Vial) 125 mg IV NOW ONE Stop: 09/26/21 08:27 Last Admin: 09/26/21 08:44 Dose: 125 mg Documented by: MÓNICA Vital Signs Vital signs: Vital Signs - 8 hr 09/26/21 08:00 Temperature 97.5 F L Pulse Rate 118 H Respiratory Rate 22 Blood Pressure 164/76 H Pulse Oximetry 93 MDM - SOB/Dyspnea Lab Data Result diagrams: 09/26/21 08:15 09/26/21 08:15 Labs: Lab Results 09/26/21 09/26/21 09/26/21 Range/Units 08:15 08:15 08:15 WBC 6.7 (4.5-11.0) X10^3/uL RBC 4.69 (4.5-5.9) X10^6/uL Hgb 14.5 (13.5-17.5) g/dL Hct 43.0 (41-53) % MCV 91.5 (80-100) fL MCH 30.8 (26-34) PG MCHC 33.7 (30-36) % RDW 14.9 H (11.6-14.8) % Plt Count 248 (150-400) X10^3/uL Neut % (Auto) 81.3 H (50-75) % Lymph % (Auto) 7.3 L (25-40) % [place]asta % (Auto) 9.3 (3-14) % Eos % (Auto) 1.7 L (2-4) % Baso % (Auto) 0.4 (0-2) % Neut # (Auto) 5400 (8103-1003) /uL Lymph # (Auto) 500 L (3976-8807) /uL [place] # (Auto) 600 (0-900) /uL Eos # (Auto) 100 (0-450) /uL Baso # (Auto) 0 (0-100) /uL Sodium 138 (137-145) mmol/L Potassium 4.2 (3.4-5.1) mmol/L Chloride 103 (98-107) mmol/L Carbon Dioxide 29 (22-32) mmol/L BUN 13 (9-20) mg/dL Creatinine 0.90 (0.66-1.25) mg/dL Estimated GFR > 60.0 (>60) mL/min BUN/Creatinine Ratio 14.4 (6-22) Glucose 175 H (80-110) mg/dL Lactate (0.7-2.1) mmol/L Calcium 9.5 (8.4-10.2) mg/dL Magnesium 2.1 (1.6-2.3) mg/dL Total Creatine Kinase 35 L (55-170) U/L CK-MB (CK-2) TNP CK-MB (CK-2) Rel Index TNP Troponin I < 0.012 (0.01-0.034) ng/mL NT-Pro-B Natriuret Pep 60 (<450) pg/mL Procalcitonin 0.07 (<0.5) ng/mL SARS-CoV-2 (PCR) Negative (Negative) 09/26/21 Range/Units 08:15 WBC (4.5-11.0) X10^3/uL RBC (4.5-5.9) X10^6/uL Hgb (13.5-17.5) g/dL Hct (41-53) % MCV (80-100) fL MCH (26-34) PG MCHC (30-36) % RDW (11.6-14.8) % Plt Count (150-400) X10^3/uL Neut % (Auto) (50-75) % Lymph % (Auto) (25-40) % [place]asta % (Auto) (3-14) % Eos % (Auto) (2-4) % Baso % (Auto) (0-2) % Neut # (Auto) (9647-0784) /uL Lymph # (Auto) (1094-4738) /uL [place] # (Auto) (0-900) /uL Eos # (Auto) (0-450) /uL Baso # (Auto) (0-100) /uL Sodium (137-145) mmol/L Potassium (3.4-5.1) mmol/L Chloride (98-107) mmol/L Carbon Dioxide (22-32) mmol/L BUN (9-20) mg/dL Creatinine (0.66-1.25) mg/dL Estimated GFR (>60) mL/min BUN/Creatinine Ratio (6-22) Glucose (80-110) mg/dL Lactate 2.1 (0.7-2.1) mmol/L Calcium (8.4-10.2) mg/dL Magnesium (1.6-2.3) mg/dL Total Creatine Kinase (55-170) U/L CK-MB (CK-2) CK-MB (CK-2) Rel Index Troponin I (0.01-0.034) ng/mL NT-Pro-B Natriuret Pep (<450) pg/mL Procalcitonin (<0.5) ng/mL SARS-CoV-2 (PCR) (Negative) Imaging Data Chest x-ray: My Impression: Nap appears similar to prior from 08/25/21. Radiologist's Impression: Brian Tuttle??75??M??1945 ? Allergy/Adv: No Known Drug Allergies Close Chest X-Ray (Signed) KipGoldonna - 09/26/21 Chest X-Ray (Signed) Dale Payne - 08/25/21 Chest X-Ray (Signed) Doug Garcia - 08/24/21 Cervical Spine MRI (Signed) Griffin Norman - 02/17/[address] (Signed) Cathy Espinal - 07/22/18 Launch?[address] [address] XRay Report Signed Patient: Brian Tuttle MR#: [id number] : 1945 Acct:[id number] Age/Sex: 75 / M Date of Service: 09/26/21 Loc: ED Accession Number: [id number] ?? Procedure: XR chest 1V Ordering Provider: Bianca Salinas D.O. PROCEDURE:? XR CHEST 1V ? INDICATIONS:? sob, hx copd ? TECHNIQUE:? One view of the chest was acquired.? ? COMPARISON:? [facility], CR, XR CHEST 1V, 08/25/2021, 10:36. ? FINDINGS:? ? Surgical changes and devices:? None.? ? Lungs and pleura:? Emphysematous change.? Lungs are clear.? No pleural effusions or pneumothorax.? ? Mediastinum:? Mediastinal contours appear normal.? Heart size is normal.? ? Bones and chest wall:? No suspicious bony lesions.? Overlying soft tissues appear unremarkable.? ? IMPRESSION:? COPD. No evidence acute pulmonary process. ? ? ? Dictated by: Reid Shin M.D. on 09/26/2021 at 9:16 ? ? Approved by: Reid Shin M.D. on 09/26/2021 at 9:20?? ECG Data Attestation: I personally reviewed and interpreted this ECG as follows: Prior ECG tracings: available for review Interpretation: Sinus rhythm, rate of 90 6p are 136 QRS 88 QTC of 416. No acute ST elevation or depression appreciated. Patient's EKG appears similar to prior from 08/25/2021. MDM Narrative Medical decision making narrative: This is a 75-year-old male comes to the emergency department with complaint of worsening shortness of breath with a history of COPD. Patient was long-term smoker. He also has noted some increasing swelling in his lower extremities after stopping a short course of Lasix. Patient also just completed prednisone 2 days ago and had noticed at the lower amount that he was starting to have some increased shortness of breath. He notes that with intermittent steroids he improved on steroids and typically worsens off of them. He is scheduled today in [place] to have a pulmonary function test. At this time I feel it is appropriate to restart his Lasix, prednisone have a follow-up for a tapering dose. Patient is on appropriate daily steroid inhaler. No other obvious cardiac, pulmonary or infectious causes or appreciated today. Patient has no active wheezing or change at this time. Did have some diuresis. His heart rate has been 104 intermittently, but he is in a sinus rhythm. His labs are otherwise reassuring at this time patient feels well. Discharge Plan Departure Patient Disposition: Home Clinical Impression: Acute exacerbation of chronic obstructive airways disease Instructions: DI for Chronic Obstructive Pulmonary Disease Activity Restrictions/Additional Instructions: I suspect your shortness of breath is secondary to COPD but may also have some fluid overload although your labs are reassuring. Discuss with your physician whether an ECHO or ultrasound of your heart may be an appropriate next step after your lung function testing today. Please take steroids daily. Discuss with your physician. These are typically not daily medications persistently but some individuals do require that. Your physician may wish to alter the length of time you are on the steroids. Also included is Lasix. Prescription sent to [facility]. Please return for new chest pain, shortness of breath, lightheadedness or passing out, persistently elevated heart rate, worsening swelling of her legs or other new or concerning symptoms. Prescriptions: New prednisone 10 mg tablet 30 mg PO DAILY Qty: 33 0RF Rx Instructions: Three tablets p.o. q.day times 5 days, 2 tablets p.o. q.day x5 days, 1 tablet p.o. q.day x5 days, 1/2 tablet p.o. q.day x5 days furosemide [Lasix] 20 mg tablet 20 mg PO DAILY Qty: 7 0RF No Action beclomethasone dipropionate INHALATION 0RF tiotropium bromide INHALATION 0RF azithromycin 250 mg tablet See Rx Instructions PO .COMPLEX Qty: 6 0RF Rx Instructions: take 500 mg today (day 1), then 250 mg for 4 days (days 2-5) PO albuterol sulfate 2.5 mg/0.5 mL solution for nebulization 2.5 mg inhalation Q20M PRN (Reason: shortness of breath or wheezing) Qty: 30 0RF Rx Instructions: for up to 3 doses albuterol sulfate 90 mcg/actuation HFA aerosol inhaler 2 puff inhalation Q4-6H PRN (Reason: shortness of breath or wheezing) Qty: 8.5 0RF lorazepam [Ativan] 0.5 mg tablet 0.5 mg PO BID PRN (Reason: anxiety) Qty: 7 0RF Referrals: Bandar Pham MD [Primary Care Provider] -
[2021-09-26 08:15] VITALS: PULSE 106; O2SAT 96
--- NOTE | 2021-09-26 08:27 | DI.RAD.S_ITS ---
PROCEDURE: XR CHEST 1V INDICATIONS: sob, hx copd TECHNIQUE: One view of the chest was acquired. COMPARISON: [facility], CR, XR CHEST 1V, 08/25/2021, 10:36. FINDINGS: Surgical changes and devices: None. Lungs and pleura: Emphysematous change. Lungs are clear. No pleural effusions or pneumothorax. Mediastinum: Mediastinal contours appear normal. Heart size is normal. Bones and chest wall: No suspicious bony lesions. Overlying soft tissues appear unremarkable. IMPRESSION: COPD. No evidence acute pulmonary process. Dictated by: Reid Shin M.D. on 09/26/2021 at 9:16 Approved by: Reid Shin M.D. on 09/26/2021 at 9:20
[2021-09-26 08:30] VITALS: PULSE 97; O2SAT 96
[2021-09-26 08:39] LABS: Add Manual Diff / Slide Review NO; Basophils Absolute Auto 0 /uL (0-100); Basophils Percent Auto 0.4 % (0-2); Eosinophils Absolute Auto 100 /uL (0-450); Eosinophils Percent Auto 1.7 % (2-4); Hemoglobin 14.5 g/dL (13.5-17.5); Lymphocytes Absolute Auto 500 /uL (1100-4500); Lymphocytes Percent Auto 7.3 % (25-40); Mean Corpuscular HGB Conc 33.7 % (30-36); Mean Corpuscular Hemoglobin 30.8 PG (26-34); Mean Corpuscular Volume 91.5 fL (80-100); Monocytes Absolute Auto 600 /uL (0-900); Monocytes Percent Auto 9.3 % (3-14); Neutrophils Absolute Auto 5400 /uL (1500-7000); Neutrophils Percent Auto 81.3 % (50-75); Platelet Count 248 X10^3/uL (150-400); Red Blood Cell Count 4.69 X10^6/uL (4.5-5.9); Red Cell Distribution Width 14.9 % (11.6-14.8); White Blood Cell Count 6.7 X10^3/uL (4.5-11.0)
[2021-09-26] MEDS: FUROSEMIDE 40 MG/4 ML VIAL IV (08:44)
[2021-09-26] MEDS: methylPREDNISolone 125 MG/2 ML VIAL IV (08:44)
[2021-09-26 08:48] LABS: BUN Creatinine Ratio 14.4 (6-22); Blood Urea Nitrogen 13 mg/dL (9-20); Calcium 9.5 mg/dL (8.4-10.2); Carbon Dioxide 29 mmol/L (22-32); Chloride 103 mmol/L (98-107); Creatine Kinase 35 U/L (55-170); Estimated Glomerular Filt Rate > 60.0 mL/min (>60); Glucose 175 mg/dL (80-110); HEMOLYSIS < 15 (0-50); Magnesium 2.1 mg/dL (1.6-2.3); Potassium 4.2 mmol/L (3.4-5.1); Sodium 138 mmol/L (137-145)
[2021-09-26 08:49] VITALS: BP 154/71; PULSE 91; O2SAT 95
[2021-09-26 08:49] LABS: Lactate (Lactic Acid) 2.1 mmol/L (0.7-2.1)
[2021-09-26 08:52] LABS: COVID19 -Nasal RAPID Negative (Negative)
[2021-09-26 09:00] VITALS: PULSE 95; O2SAT 96
[2021-09-26 09:01] LABS: NT-proBNP (BNP-Adult 18+) 60 pg/mL (<450); Troponin I < 0.012 ng/mL (0.01-0.034)
[2021-09-26 09:05] LABS: Procalcitonin 0.07 ng/mL (<0.5)
[2021-09-26 09:30] VITALS: PULSE 102; O2SAT 97
[2021-09-26 10:33] LABS: Reflexed Lactate in 2 Hours Y
== END 2021-09-26 09:34 | disposition home or self-care (01) ==
PROVIDERS: Emergency Provider Emergency Medicine; PCP Family Medicine
DX: J44.1 Chronic obstructive pulmonary disease with (acute) exacerbation (principal); M79.89 Other specified soft tissue disorders; R03.0 Elevated blood-pressure reading, without diagnosis of hypertension; Z20.822 Contact with and (suspected) exposure to COVID-19; Z87.891 Personal history of nicotine dependence
CPT/HCPCS: 36415; 71045; 80048; 82550; 83605; 83735; 83880; 84145; 84484; 85025; 87635; 93005; 93010; 96374; 96375; 99284; C9803; J1940; J2930

== ENCOUNTER → 2022-09-24 15:51 | Outpatient (CLI) | payer OTHER, SELFPAY ==
[2019-12-16 09:08] VITALS: BMI 28.5
--- NOTE | 2022-09-24 15:53 | DI.CT.S_ITS ---
PROCEDURE: CT CHEST WO CON INDICATIONS: Other forms of dyspnea TECHNIQUE: Noncontrast 5 mm thick sections acquired from the pulmonary apices to the posterior costophrenic angles. 1 mm lung window, 5 mm thick coronal and sagittal and 7 mm axial MIP reformats were then acquired. For radiation dose reduction, the following was used: automated exposure control, adjustment of mA and/or kV according to patient size. COMPARISON: None. FINDINGS: Image quality: Excellent. There is some moderate emphysematous change noted throughout both lungs without evidence for significant focal lung infiltrate or pulmonary mass lesion. There is some bibasilar scar present. I do not see any significant hilar or mediastinal adenopathy. No pleural effusion is identified. Coronary artery and atherosclerotic calcifications are present. Visualized portions of the upper abdominal viscera shows an incompletely visualized left renal cyst. IMPRESSION: 1. No acute process identified within the patient's chest. 2. Moderate emphysematous change. 3. Coronary artery and atherosclerotic calcifications. 4. Left renal cyst. 5. Bibasilar scar. Dictated by: Leon Hughes M.D. on 09/24/2022 at 17:11 Approved by: Leon Hughes M.D. on 09/24/2022 at 17:18
== END ==
PROVIDERS: PCP Family Medicine; Referring Provider Internal Medicine Pulmonary Disease; Visit Provider Internal Medicine Pulmonary Disease
DX: R06.09 Other forms of dyspnea (principal); I25.10 Atherosclerotic heart disease of native coronary artery without angina pectoris; N28.1 Cyst of kidney, acquired; J98.4 Other disorders of lung
CPT/HCPCS: 71250

== ENCOUNTER → 2022-09-28 07:53 | Outpatient (CLI) | payer OTHER, SELFPAY ==
[2019-12-16 09:08] VITALS: BMI 28.5
--- NOTE | 2022-09-28 | DI.ECHO.S_ITS ---
[facility] [place] [facility]---------+ [facility] +---------+ : : [address] : : : : [id number] : : : : Phone: [phone] Echocardiogram Report + + :Name: NEELAM NEWELL Study Date: 09/28/2022 Height: 71 in : :[facility] ReadingLocation: Weight: 210 lb : : Gender: Male BSA: 2.2 m2 : :: 1945 Age: 76 yrs BP: 136/79 mmHg: :Reason For Study: Dyspnea : :Ordering Physician: MARILU, : :GUTIERREZ Performed By: Foster Del Toro : :Referring: GUTIERREZ MICHEL : + + Interpretation Summary 1) Normal left ventricular thickness, size, wall motion, and systolic function (EF 55-60%). 2) Normal right ventricular size and function. 3) No significant valvular abnormalities. 4) No prior Echo available for comparison. Procedure: A two-dimensional transthoracic echocardiogram with color flow and Doppler was performed. The study quality was technically adequate. There is no prior echocardiogram noted for this patient. The patient was in normal sinus rhythm during the exam. Left Ventricle: The left ventricle is normal in size and wall thickness. The ejection fraction is estimated to be 55-60%. Left ventricular systolic function is normal. There are no focal wall motion abnormalities. Diastolic parameters suggest probable normal left ventricular diastolic function and normal filling pressures. Right Ventricle: The right ventricle is normal in size and function. Atria: Both atria are normal in size. The interatrial septum grossly appears intact with no obvious evidence for an atrial septal defect. Mitral Valve: The mitral valve is normal in structure and function. There is no mitral regurgitation noted. Aortic Valve: The aortic valve is normal in structure and function. There is no aortic valve stenosis. No aortic regurgitation is present. Tricuspid Valve: The tricuspid valve is normal in structure and function. There is trace tricuspid regurgitation. The right ventricular systolic pressure is estimated to be at least 32 mmHg based on an estimated right atrial pressure of 3 mm Hg. Pulmonic Valve: The pulmonic valve is normal in structure and function. There is no pulmonic valvular regurgitation. Great Vessels: The aortic root is normal size. The ascending aorta could not be visualized. The IVC is of normal diameter and collapses greater than 50% with a sniff. This suggests a low right atrial pressure of 3 mm Hg. Pericardium/ Pleura There is no pericardial effusion. There is no pleural effusion. MMode/2D Measurements & Calculations LVIDd: 4.6 cm LVOT diam: 2.4 cm LVIDs: 3.3 cm Ao root diam: 3.4 cm FS: 29.1 % IVSd: 0.70 cm LVPWd: 0.73 cm LV sharpe. diameter/BSA (cm/m^2): 2.1 LV sys. diameter/BSA (cm/m^2): 1.5 LA A2 area: 18.4 cm2 RA long axis: 4.4 cm LA A4 area: 16.8 cm2 RA area: 15.1 cm2 LA length (vol): 5.3 cm RA vol: 44.2 ml LA vol: 49.8 ml RA : 20.5 ml/m2 LA vol index: 23.1 ml/m2 TAPSE: 2.3 cm Doppler Measurements & Calculations Ao V2 max: 99.6 cm/sec LVOT Max Allan: 88.0 cm/sec Ao V2 mean: 72.9 cm/sec LV V1 max P.1 mmHg Ao max P.0 mmHg LV V1 VTI: 17.0 cm Ao mean P.3 mmHg STEPHEN(I,D): 4.1 cm2 Ao V2 VTI: 18.0 cm STEPHEN(V,D): 3.9 cm2 sev ratio: 0.94 STEPHEN indexed to BSA (cm^2/m^2): 1.9 MV E max allan: 68.0 cm/sec TR max allan: 271.1 cm/sec MV A max allan: 80.9 cm/sec TR max P.4 mmHg MV E/A: 0.84 Med Peak E' Allan: 6.0 cm/sec E/E' med: 11.3 Lat Peak E' Allan: 6.9 cm/sec E/E' lat: 9.8 E/e' average: 10.5 MV dec time: 0.24 sec SV(LVOT): 74.6 ml Reading Physician:02:10 PM
== END ==
PROVIDERS: PCP Family Medicine; Referring Provider Internal Medicine Pulmonary Disease; Visit Provider Internal Medicine Pulmonary Disease
DX: R06.09 Other forms of dyspnea (principal)
CPT/HCPCS: 93306

== ENCOUNTER → 2022-10-10 12:49 | Outpatient (CLI) | payer OTHER, SELFPAY ==
[2019-12-16 09:08] VITALS: BMI 28.5
[2022-10-10 14:14] LABS: Blood Urea Nitrogen 27 mg/dL (9-20); Calcium 8.8 mg/dL (8.4-10.2); Carbon Dioxide 35 mmol/L (22-32); Chloride 89 mmol/L (98-107); Estimated Glomerular Filt Rate > 60 mL/min (>60); Glucose 357 mg/dL (80-110); HEMOLYSIS < 15 (0-50); Potassium 4.2 mmol/L (3.4-5.1); Sodium 135 mmol/L (137-145)
== END ==
PROVIDERS: PCP Family Medicine; Referring Provider Internal Medicine Pulmonary Disease; Visit Provider Internal Medicine Pulmonary Disease
DX: I51.89 Other ill-defined heart diseases (principal)
CPT/HCPCS: 36415; 80048

== ENCOUNTER 2022-10-19 10:42 | Emergency (ER) | payer OTHER, SELFPAY ==
[2019-12-16 09:08] VITALS: BMI 28.5
[2022-10-19 11:19] VITALS: BP 130/72; PULSE 97; RESP 22; TEMP 36.6; O2SAT 94; BMI 29.2
--- NOTE | 2022-10-19 11:25 | DI.RAD.S_ITS ---
PROCEDURE: XR CHEST 1V INDICATIONS: Shortness of breath TECHNIQUE: One view of the chest was acquired. COMPARISON: [facility], CT, CT CHEST WO CON, 09/24/2022, 15:58. [facility], CR, XR CHEST 1V, 08/25/2021, 10:36. [facility], CR, XR CHEST 1V, 09/26/2021, 8:54. FINDINGS: Surgical changes and devices: Lower cervical spine fixation hardware is seen. Lungs and pleura: Lungs are clear. No pleural effusions or pneumothorax. Mediastinum: Mediastinal contours appear normal. Heart size is normal. Atherosclerotic calcification of the aortic arch is noted. Bones and chest wall: Age-appropriate bony degenerative changes are seen. No suspicious bony lesions. Overlying soft tissues appear unremarkable. IMPRESSION: No significant abnormality is seen on this single view chest study. Postoperative and degenerative changes are seen. Dictated by: Chaparro Joy M.D. on 10/19/2022 at 11:37 Approved by: Chaparro Joy M.D. on 10/19/2022 at 11:38
[2022-10-19 12:11] LABS: Influenza A - CEPHEID Flu A NEGATIVE (NEGATIVE); Influenza B - CEPHEID Flu B NEGATIVE (NEGATIVE); Respiratory Syncytial Virus Negative (Negative)
[2022-10-19 12:12] LABS: COVID-19 CEPHEID 4-PLEX PCR Negative (Negative)
[2022-10-19 12:18] LABS: Add Manual Diff / Slide Review NO; Basophils Absolute Auto 0 /uL (0-100); Basophils Percent Auto 0.2 % (0-2); Eosinophils Absolute Auto 0 /uL (0-450); Eosinophils Percent Auto 0.4 % (2-4); Hematocrit 45.3 % (41-53); Hemoglobin 15.4 g/dL (13.5-17.5); Lymphocytes Absolute Auto 600 /uL (1100-4500); Lymphocytes Percent Auto 4.5 % (25-40); Mean Corpuscular HGB Conc 33.9 % (30-36); Mean Corpuscular Hemoglobin 31.5 PG (26-34); Mean Corpuscular Volume 92.9 fL (80-100); Monocytes Absolute Auto 600 /uL (0-900); Monocytes Percent Auto 4.4 % (3-14); Neutrophils Absolute Auto 11600 /uL (1500-7000); Neutrophils Percent Auto 90.5 % (50-75); Platelet Count 248 X10^3/uL (150-400); Red Blood Cell Count 4.88 X10^6/uL (4.5-5.9); Red Cell Distribution Width 13.6 % (11.6-14.8); White Blood Cell Count 12.9 X10^3/uL (4.5-11.0)
[2022-10-19 12:29] LABS: Prothrombin Time 11.4 SECONDS (10.1-12.7)
[2022-10-19 12:33] LABS: Lactate (Lactic Acid) 1.9 mmol/L (0.7-2.1)
[2022-10-19 12:36] LABS: Alanine Aminotransferase 54 IU/L (<50); Albumin 4.5 g/dL (3.5-5.0); Albumin Globulin Ratio 1.6 (1.0-2.8); Alkaline Phosphatase 77 U/L (38-126); Aspartate Aminotransferase 34 IU/L (17-59); BUN Creatinine Ratio 29.5 (6-22); Bilirubin Total 0.7 mg/dL (0.2-1.3); Blood Urea Nitrogen 26 mg/dL (9-20); Calcium 9.4 mg/dL (8.4-10.2); Carbon Dioxide 31 mmol/L (22-32); Chloride 96 mmol/L (98-107); Estimated Glomerular Filt Rate > 60 mL/min (>60); Globulin 2.8 g/dL (1.7-4.1); Glucose 182 mg/dL (80-110); HEMOLYSIS 26 (0-50); Sodium 137 mmol/L (137-145); Total Protein 7.3 g/dL (6.3-8.2)
[2022-10-19 12:46] LABS: NT-proBNP (BNP-Adult 18+) 30 pg/mL (<450); Troponin I < 0.012 ng/mL (0.01-0.034)
--- NOTE | 2022-10-19 15:03 | PC.NURSE ---
Pt has hx many years ago exposed to chlorine gas.
--- NOTE | 2022-10-19 16:36 | ED_ITS ---
HPI - SOB/Dyspnea General Chief Complaint: Shortness of Breath/Dyspnea Stated Complaint: COPD, difficulty breathing, cramping Time Seen by Provider: 10/19/22 15:17 Source: patient Mode of arrival: Wheelchair History of Present Illness HPI Narrative: 76-year-old male former smoker with history of COPD presents with his in the chief complaint of increasing wheeze and shortness of breath for least the past few days. He states that he has been using his inhalers as prescribed and is currently on a prednisone taper. He gets more short of breath with exertion but denies increasing shortness of breath when he lays flat. He is had no fever or chills. He denies runny nose or sore throat. He has no chest pain, dizziness, weakness or lightheadedness. He denies nausea, vomiting or diarrhea. He states that his symptoms started increasing when his prednisone taper dropped down below 20 mg and that he was doing much better when his dosing was higher. He denies recent travel, exposure to ill persons or other medication changes Related Data Home Medications Medication Instructions Recorded Confirmed beclomethasone dipropionate [Qvar] inhalation 03/19/19 03/19/19 tiotropium bromide [Spiriva inhalation 03/19/19 03/19/19 Respimat] Previous Rx's Medication Instructions Recorded azithromycin 250 mg tablet See Rx Instructions PO .COMPLEX #6 03/19/19 tabs albuterol sulfate 2.5 mg/0.5 mL 2.5 mg (0.5 mL) inhalation Q20M 08/25/21 solution for nebulization PRN shortness of breath or wheezing #30 ea albuterol sulfate 90 mcg/actuation 2 puff inhalation Q4-6H PRN 08/25/21 aerosol inhaler shortness of breath or wheezing #8.5 grams lorazepam 0.5 mg tablet (Ativan) 0.5 mg PO BID PRN anxiety #7 tabs 08/25/21 furosemide 20 mg tablet (Lasix) 20 mg PO DAILY #7 tabs 09/26/21 prednisone 10 mg tablet 30 mg PO DAILY #33 tabs 09/26/21 blood-glucose meter (Blood Glucose #1 ea 10/19/22 Monitoring kit) Allergies Allergy/AdvReac Type Severity Reaction Status Date / Time No Known Drug Allergies Allergy Verified 03/19/19 08:21 Review of Systems Review of Systems Narrative: GENERAL: Denies chills, fatigue, malaise, fever, sweats. HEENT: Denies sinus pain, ear pain, sore throat, difficulty swallowing, dizziness. RESPIRATORY: See HPI CARDIOVASCULAR: Denies chest pain, palpitations, orthopnea, edema, GASTROINTESTINAL: Denies nausea, vomiting, abdominal pain, diarrhea, constipation, melena. : Denies dysuria, frequency, incontinence, hematuria, urinary retention. MUSCULOSKELETAL: denies weakness, joint pain, or bony pain SKIN: Denies rash, skin lesions, or other NEUROLOGIC: Denies weakness, headache, numbness, change in speech, confusion, seizures, incoordination. PSYCHIATRIC: No concerning psychosocial issues. 12 point review of systems is negative except for those stated above Patient History Medical History Chronic obstructive pulmonary disease Social History Smoking Status: Former smoker Tobacco: How many years used: 41 Smoking Status: Former smoker alcohol intake frequency: holidays/special occasions only Substance Use Type: does not use Exam Narrative Exam Narrative: GENERAL: [76] year old patient appears stated age. Well-developed patient, in minimal distress. No increased work of breathing, use of accessory muscles or hypoxemia. No conversational dyspnea HEAD: Atraumatic. Normocephalic. EYES: Pupils equal round and reactive. Extraocular motions intact. No scleral icterus. No injection or drainage. ENT: Nose without bleeding, purulent drainage. Throat without erythema, tonsillar hypertrophy or exudate. Airway patent. NECK: Trachea midline. Non tender CARDIOVASCULAR: Regular rate and rhythm without murmurs, gallops, or rubs. RESPIRATORY: Decreased breath sounds bilaterally with prolonged expiratory phase throughout, no rales or rhonchi, faint expiratory wheezes in bilateral a pices GASTROINTESTINAL: Abdomen soft, non-tender, nondistended. EXTREMITIES: No edema or joint tenderness. BACK: Nontender without deformity or crepitance. No flank tenderness. NEURO: AOx3. SKIN: No rash or erythema of visible areas Initial Vital Signs Initial Vital Signs: Vital Signs Temperature 97.8 F 10/19/22 11:19 Pulse Rate 97 H 10/19/22 11:19 Respiratory Rate 10/19/22 11:19 Blood Pressure 130/72 10/19/22 11:19 Pulse Oximetry 94 10/19/22 11:19 Oxygen Delivery Method 10/19/22 11:19 Course Orders Ordered: ED Orders 10/19/22 11:25 XR chest 1V Stat Complete Blood Count AUTO DIFF Stat Comprehensive Metabolic Panel Stat Covid-19 + FLU A/B + RSV - PCR Stat Lactate (Lactic Acid) Stat NT-proBNP (BNP-Adult 18+) Stat Prothrombin Time INR Stat Troponin I Stat Measure peak expiratory flow ONCE RT Consult Eval and Treat NOW 10/19/22 11:33 EKG-12 Lead Stat Vital Signs Vital signs: Vital Signs - 8 hr 10/19/22 11:19 Temperature 97.8 F Pulse Rate 97 H Respiratory Rate 22 Blood Pressure 130/72 Pulse Oximetry 94 Oxygen Delivery Method Room Air MDM - SOB/Dyspnea Lab Data Result diagrams: 10/19/22 11:25 10/19/22 11:25 Labs: Lab Results 10/19/22 10/19/22 10/19/22 Range/Units 11:25 11:25 11:25 WBC 12.9 H (4.5-11.0) X10^3/uL RBC 4.88 (4.5-5.9) X10^6/uL Hgb 15.4 (13.5-17.5) g/dL Hct 45.3 (41-53) % MCV 92.9 (80-100) fL MCH 31.5 (26-34) PG MCHC 33.9 (30-36) % RDW 13.6 (11.6-14.8) % Plt Count 248 (150-400) X10^3/uL Neut % (Auto) 90.5 H (50-75) % Lymph % (Auto) 4.5 L (25-40) % [place]ud[place] % (Auto) 4.4 (3-14) % Eos % (Auto) 0.4 L (2-4) % Baso % (Auto) 0.2 (0-2) % Neut # (Auto) 33580 H (0110-7986) /uL Lymph # (Auto) 600 L (8086-3062) /uL [place] # (Auto) 600 (0-900) /uL Eos # (Auto) 0 (0-450) /uL Baso # (Auto) 0 (0-100) /uL PT 11.4 (10.1-12.7) SECONDS INR 1.0 (0.9-1.3) Sodium (137-145) mmol/L Potassium (3.4-5.1) mmol/L Chloride (98-107) mmol/L Carbon Dioxide (22-32) mmol/L BUN (9-20) mg/dL Creatinine (0.66-1.25) mg/dL Estimated GFR (>60) mL/min BUN/Creatinine Ratio (6-22) Glucose (80-110) mg/dL Lactate (0.7-2.1) mmol/L Calcium (8.4-10.2) mg/dL Total Bilirubin (0.2-1.3) mg/dL AST (17-59) IU/L ALT (<50) IU/L Alkaline Phosphatase (38-126) U/L Troponin I (0.01-0.034) ng/mL NT-Pro-B Natriuret Pep (<450) pg/mL Total Protein (6.3-8.2) g/dL Albumin (3.5-5.0) g/dL Globulin (1.7-4.1) g/dL Albumin/Globulin Ratio (1.0-2.8) SARS-CoV-2 (PCR) Negative (Negative) Influenza A (RT-PCR) Flu a negative (NEGATIVE) Influenza B (RT-PCR) Flu b negative (NEGATIVE) RSV (PCR) Negative (Negative) 10/19/22 10/19/22 Range/Units 11:25 11:25 WBC (4.5-11.0) X10^3/uL RBC (4.5-5.9) X10^6/uL Hgb (13.5-17.5) g/dL Hct (41-53) % MCV (80-100) fL MCH (26-34) PG MCHC (30-36) % RDW (11.6-14.8) % Plt Count (150-400) X10^3/uL Neut % (Auto) (50-75) % Lymph % (Auto) (25-40) % [place] % (Auto) (3-14) % Eos % (Auto) (2-4) % Baso % (Auto) (0-2) % Neut # (Auto) (5069-6849) /uL Lymph # (Auto) (4057-4659) /uL [place] # (Auto) (0-900) /uL Eos # (Auto) (0-450) /uL Baso # (Auto) (0-100) /uL PT (10.1-12.7) SECONDS INR (0.9-1.3) Sodium 137 (137-145) mmol/L Potassium 4.0 (3.4-5.1) mmol/L Chloride 96 L (98-107) mmol/L Carbon Dioxide 31 (22-32) mmol/L BUN 26 H (9-20) mg/dL Creatinine 0.88 (0.66-1.25) mg/dL Estimated GFR > 60 (>60) mL/min BUN/Creatinine Ratio 29.5 H (6-22) Glucose 182 H D (80-110) mg/dL Lactate 1.9 (0.7-2.1) mmol/L Calcium 9.4 (8.4-10.2) mg/dL Total Bilirubin 0.7 (0.2-1.3) mg/dL AST 34 (17-59) IU/L ALT 54 H (<50) IU/L Alkaline Phosphatase 77 (38-126) U/L Troponin I < 0.012 (0.01-0.034) ng/mL NT-Pro-B Natriuret Pep 30 (<450) pg/mL Total Protein 7.3 (6.3-8.2) g/dL Albumin 4.5 (3.5-5.0) g/dL Globulin 2.8 (1.7-4.1) g/dL Albumin/Globulin Ratio 1.6 (1.0-2.8) SARS-CoV-2 (PCR) (Negative) Influenza A (RT-PCR) (NEGATIVE) Influenza B (RT-PCR) (NEGATIVE) RSV (PCR) (Negative) Point of Care Testing Glucose POC 219 Imaging Data Chest x-ray: Radiologist's Impression: Close Chest X-Ray (Signed) Chaparro Joy - 10/19/22 Echocardiogram Ultrasound (Signed) Emily Mederos - 09/28/[address] (Signed) Leon Hughes - 09/24/22 Chest X-Ray (Signed) Reid Shin - 09/26/21 Chest X-Ray (Signed) Dale Payne - 08/25/21 Chest X-Ray (Signed) RadhaDoug - 08/24/21 Cervical Spine MRI (Signed) Griffin Norman - 02/17/[address] (Signed) KylieCathy - 07/22/18 Launch?Image [address] [address] XRay Report Signed Patient: Brian Tuttle MR#: [id number] : 1945 Acct:[id number] Age/Sex: 76 / M Date of Service: 10/19/22 Loc: ED Accession Number: [id number] ?? Procedure: XR chest 1V Ordering Provider: Gabe Lepe D.O. PROCEDURE:? XR CHEST 1V ? INDICATIONS:? Shortness of breath ? TECHNIQUE:? One view of the chest was acquired.? ? COMPARISON:? [facility], CT, CT CHEST WO CON, 09/24/2022, 15:58.? [facility], CR, XR CHEST 1V, 08/25/2021, 10:36.? [facility], CR, XR CHEST 1V, 09/26/2021, 8:54. ? FINDINGS:? ? Surgical changes and devices:? Lower cervical spine fixation hardware is seen. ? Lungs and pleura:? Lungs are clear.? No pleural effusions or pneumothorax.? ? Mediastinum:? Mediastinal contours appear normal.? Heart size is normal.? Atherosclerotic calcification of the aortic arch is noted.? ? Bones and chest wall:? Age-appropriate bony degenerative changes are seen.? No suspicious bony lesions.? Overlying soft tissues appear unremarkable.? IMPRESSION:? No significant abnormality is seen on this single view chest study. ? Postoperative and degenerative changes are seen.? ? ? Dictated by: Chaparro Joy M.D. on 10/19/2022 at 11:37 ? ? Approved by: Chaparro Joy M.D. on 10/19/2022 at 11:38 ? MDM Narrative Medical decision making narrative: [76-year-old male with history of COPD presents with shortness of breath and wheezing] Multiple etiologies for patient's symptoms considered including, but not limited to: [Acute CHF, pneumonia, COVID, flu, COPD exacerbation, PE versus other] Prior Charts reviewed: Including multiple prior ED notes demonstrating similar presentations with COPD exacerbation Labs reviewed and interpreted by myself: Slight elevation of white blood cell count thought more likely related to prednisone use rather than underlying infection. Chemistries largely unremarkable and stable Imaging reviewed: No focal infiltrate Patient's symptoms improved over duration of stay with above-stated therapies. Findings and discharge diagnosis discussed with patient/family followed by verbalization of understanding Return precautions discussed with patient/family whom verbalize understanding of diagnosis and plan Discharge Plan Departure Patient Disposition: Home Clinical Impression: Acute exacerbation of chronic obstructive airways disease Instructions: Chronic Obstructive Pulmonary Disease Activity Restrictions/Additional Instructions: *You have been diagnosed with [acute exacerbation of COPD] *What to do: *Please consider increasing your prednisone to 30mg daily until you can follow up *please consider trying to get a blood glucose monitor from your pharmacy to monitor blood sugar as we try to get your prednisone dose stabilized *Please follow up with your primary care provider in 2-3 days, call for an bárbara ointment. Let them know you were seen in the Emergency Department and that we ask that you be seen in follow up. We will electronically transmit a record of today's note if your PCP is in our system *If you do not have a primary care provider please contact the [facility] Resource line at [phone]. They will ask some questions about your medical history and help get you set up with a doctor in the community. *Return to Emergency Department if you should have any new, worsening or con cerning symptoms, such as [fever greater than 101 F, shaking chills, worsening pain, persistent vomiting or other bothersome symptoms] Prescriptions: New (DME) blood-glucose meter [Blood Glucose Monitoring] Kit See Rx Instructions .Route Qty: 1 0RF Rx Instructions: As directed No Action beclomethasone dipropionate INHALATION tiotropium bromide INHALATION azithromycin 250 mg tablet See Rx Instructions PO .COMPLEX Qty: 6 0RF Rx Instructions: take 500 mg today (day 1), then 250 mg for 4 days (days 2-5) PO prednisone 10 mg tablet 30 mg PO DAILY Qty: 33 0RF Rx Instructions: Three tablets p.o. q.day times 5 days, 2 tablets p.o. q.day x5 days, 1 tablet p.o. q.day x5 days, 1/2 tablet p.o. q.day x5 days furosemide [Lasix] 20 mg tablet 20 mg PO DAILY Qty: 7 0RF albuterol sulfate 2.5 mg/0.5 mL solution for nebulization 2.5 mg inhalation Q20M PRN (Reason: shortness of breath or wheezing) Qty: 30 0RF Rx Instructions: for up to 3 doses albuterol sulfate 90 mcg/actuation HFA aerosol inhaler 2 puff inhalation Q4-6H PRN (Reason: shortness of breath or wheezing) Qty: 8.5 0RF lorazepam [Ativan] 0.5 mg tablet 0.5 mg PO BID PRN (Reason: anxiety) Qty: 7 0RF Referrals: Bandar Pham MD [Primary Care Provider] -
[2022-10-19 17:39] VITALS: BP 135/82; PULSE 88; RESP 18; O2SAT 98
== END 2022-10-19 17:41 | disposition home or self-care (01) ==
PROVIDERS: Emergency Provider Emergency Medicine; PCP Family Medicine; Referring Provider Family Medicine
DX: J44.1 Chronic obstructive pulmonary disease with (acute) exacerbation (principal); Z79.899 Other long term (current) drug therapy; Z20.822 Contact with and (suspected) exposure to COVID-19
CPT/HCPCS: 0241U; 71045; 80053; 82962; 83605; 83880; 84484; 85025; 85610; 93005; 99282; 99284

== ENCOUNTER → 2023-09-26 11:07 | Outpatient (CLI) | payer OTHER, SELFPAY ==
[2019-12-16 09:08] VITALS: BMI 28.5
[2023-09-26 12:44] LABS: Hemoglobin A1C% w Est Avg Glu 6.5 % (4.0-6.0)
== END ==
PROVIDERS: PCP Family Medicine; Referring Provider Registered Nurse; Visit Provider Registered Nurse
DX: E09.9 Drug or chemical induced diabetes mellitus without complications (principal)
CPT/HCPCS: 36415; 83036

== ENCOUNTER → 2023-10-03 10:03 | Outpatient (CLI) | payer OTHER, SELFPAY ==
[2019-12-16 09:08] VITALS: BMI 28.5
[2023-10-03 10:51] LABS: Creatinine Urine Random 50.9 mg/dL
[2023-10-03 10:56] LABS: Microalbumin Urine Random < 0.6 mg/dL (0-1.6)
== END ==
PROVIDERS: PCP Family Medicine; Referring Provider Family Medicine; Visit Provider Family Medicine
DX: E09.9 Drug or chemical induced diabetes mellitus without complications (principal)
CPT/HCPCS: 82043; 82570

== ENCOUNTER → 2023-11-21 | Outpatient (CLI) | payer OTHER, SELFPAY ==
[2019-12-16 09:08] VITALS: BMI 28.5
--- NOTE | 2023-11-21 14:57 | DI.RAD.S_ITS ---
Bone Density Report Name: NEELAM NEWELL Age: 77 Sex: Male Ethnicity: White Date of : 1945 Indication: screening for osteoporosis; Referring Provider: UNSPECIFIED Study: Bone densitometry was performed. Exam Date: November 21, 2023 Accession number: [id number] Bone Density: Region BMD T-score Z-score Classification AP Spine(L1-L4) 0.628 -3.8 -3.0 Osteoporosis Femoral Neck (Left) 0.537 -2.8 -1.4 Osteoporosis Total Hip (Left) 0.667 -2.3 -1.4 Osteopenia Femoral Neck (Right) 0.540 -2.8 -1.3 Osteoporosis Total Hip (Right) 0.720 -1.8 -1.0 Osteopenia Total Hip Mean 0.693 -2.1 -1.2 Osteopenia World Health Organization criteria for BMD impression classify patients as: Normal (T-score at or above -1.0), Osteopenia (T-score between -1.0 and -2.5), or Osteoporosis (T-score at or below -2.5). 10-year Fracture Risk: FRAX not reported because: Some T-score for Spine Total or Hip Total or Femoral Neck at or below -2.5 Impression: The patient has osteoporosis, based on the Total Spine T-score. Discussion: HIGH RISK OF FRACTURE. BONE DENSITY IS UNDESIRABLY LOW AT ONE OR MORE SKELETAL SITES, CONSISTENT WITH OSTEOPOROSIS. ALSO, BONE DENSITY IS LOWER THAN EXPECTED FOR AGE, SEX AND RACE AT ONE OR MORE SKELETAL SITES; RECOMMEND A DILIGENT SEARCH FOR SECONDARY CAUSES OF BONE LOSS. This patient's lowest T-score meets the World Health Organization's (WHO) criteria for osteoporosis at one or more sites (T-score -2.5 or below). In untreated patients, the risk of osteoporotic fracture increases approximately two-fold for each 1.0 SD decrease in T-score. Low bone density is not the only risk factor for fracture; also consider factors such as patient's age, frailty or poor health, risk of falling, risk of injury, previous osteoporotic fracture, family history of osteoporosis, cigarette smoking, low body weight, etc. Not everyone with low bone mineral density has osteoporosis; osteomalacia and other metabolic bone disorders should also be considered. Patients who have osteoporosis should be evaluated for specific diseases and conditions (secondary causes) that may cause or contribute to bone loss. The National Osteoporosis Foundation (NOF) recommends pharmacologic intervention for men with BMD at this level (a T-score of -2.5 or below). Also, this patient's bone mineral density is below the range considered normal for healthy age-, sex and race-matched controls at least one site (Z-score -2.0 or below). This warrants careful evaluation for diseases and conditions that may contribute to accelerated bone loss. The patient should follow a healthful lifestyle (good nutrition with adequate calcium and vitamin D, and appropriate weight-bearing exercise). Follow-Up: Consider repeating this study in 2 years to reassess this patient's status, or sooner if there is some new clinical indication. Reported by: MARIELLE CLINE M.D. on 11/21/2023 3:31:00 PM.
== END ==
PROVIDERS: PCP Family Medicine; Referring Provider Family Medicine; Visit Provider Family Medicine
DX: M81.0 Age-related osteoporosis without current pathological fracture (principal)
CPT/HCPCS: 77080

== ENCOUNTER → 2024-02-07 12:10 | Outpatient (CLI) | payer OTHER, SELFPAY ==
[2019-12-16 09:08] VITALS: BMI 28.5
[2024-02-07 13:18] LABS: Sodium 140 mmol/L (137-145)
== END ==
PROVIDERS: PCP Family Medicine; Referring Provider Family Medicine; Visit Provider Family Medicine
DX: Z51.81 Encounter for therapeutic drug level monitoring (principal)
CPT/HCPCS: 36415; 84295

== ENCOUNTER → 2024-02-25 14:11 | Outpatient (CLI) | payer OTHER, SELFPAY ==
[2019-12-16 09:08] VITALS: BMI 28.5
[2024-02-25 15:24] LABS: Estimated Glomerular Filt Rate > 60 mL/min (>60); HEMOLYSIS 17 (0-50); Potassium 4.3 mmol/L (3.4-5.1); Sodium 139 mmol/L (137-145)
== END ==
LOC: LAB 14:13
PROVIDERS: PCP Family Medicine; Referring Provider Family Medicine; Visit Provider Family Medicine
DX: E09.9 Drug or chemical induced diabetes mellitus without complications (principal); T38.0X5A Adverse effect of glucocorticoids and synthetic analogues, initial encounter
CPT/HCPCS: 36415; 82565; 84132; 84295

== ENCOUNTER → 2024-02-27 10:27 | Outpatient (CLI) | payer OTHER, SELFPAY ==
[2019-12-16 09:08] VITALS: BMI 28.5
[2024-02-27 11:44] LABS: Creatinine Urine Random 52.7 mg/dL
[2024-02-27 11:52] LABS: Microalbumin Urine Random < 0.6 mg/dL (0-1.6)
== END ==
PROVIDERS: PCP Family Medicine; Referring Provider Family Medicine; Visit Provider Family Medicine
DX: E09.9 Drug or chemical induced diabetes mellitus without complications (principal); T38.0X5A Adverse effect of glucocorticoids and synthetic analogues, initial encounter
CPT/HCPCS: 82043; 82570

== ENCOUNTER → 2024-03-02 11:54 | Outpatient (ROUT) | payer OTHER, SELFPAY ==
[2019-12-16 09:08] VITALS: BMI 28.5
[2024-03-02 12:25] LABS: Hemoglobin A1C% w Est Avg Glu 6.3 % (4.0-6.0)
== END ==
PROVIDERS: PCP Family Medicine; Visit Provider Family Medicine
DX: E09.9 Drug or chemical induced diabetes mellitus without complications (principal); T38.0X5A Adverse effect of glucocorticoids and synthetic analogues, initial encounter
CPT/HCPCS: 83036

== ENCOUNTER → 2024-09-16 10:16 | Outpatient (CLI) | payer OTHER, SELFPAY ==
[2019-12-16 09:08] VITALS: BMI 28.5
[2024-09-16 11:16] LABS: Hemoglobin A1C% w Est Avg Glu 5.7 % (4.0-6.0)
== END ==
PROVIDERS: PCP Family Medicine
DX: E09.9 Drug or chemical induced diabetes mellitus without complications (principal)
CPT/HCPCS: 36415; 83036

== ENCOUNTER → 2025-02-11 10:30 | Outpatient (CLI) | payer OTHER, SELFPAY ==
[2019-12-16 09:08] VITALS: BMI 28.5
[2025-02-11 14:17] LABS: Hemoglobin A1C% w Est Avg Glu 5.7 % (4.0-6.0)
== END ==
PROVIDERS: PCP Family Medicine; Referring Provider Family Medicine; Visit Provider Family Medicine
DX: E09.9 Drug or chemical induced diabetes mellitus without complications (principal)
CPT/HCPCS: 36415; 83036